=== PATIENT | female | born 1940 | race Caucasian/White ===

== ENCOUNTER 2023-02-15 05:25 | Inpatient (IN) | payer MEDICARE, MEDICAID ==
[2023-02-15] VITALS (57 sets, daily range): BP systolic 60–145; BP diastolic 16–85
[~2023-02-15] VITALS: Ht 152.4 cm; Wt 60.3 kg
[~2023-02-15 05:25] MED LIST: CALC-1042 PO; CHOL100046 PO; LEVO25TA7 PO; METF-416 PO; PRAM0.5T11 PO; RIVA20TA PO; SPIR25TA6 PO
[2023-02-15] MEDS ORDERED: SODIUM CHLORIDE 0.9% 1,000 ML IV SCH (06:15)
[2023-02-15 06:18] LABS: CHLORIDE 107 mEq/L (98-107)
[2023-02-15 06:19] LABS: INR 1.1; PARTIAL THROMBOPLASTIN TIME 25.4 sec (23.4-31.0); PROTHROMBIN TIME 11.5 sec (9.6-11.0)
[2023-02-15] MEDS ORDERED: GENTAMICIN SULF 40MG/ML 2ML VIAL ONE (06:20)
[2023-02-15] MEDS ORDERED: LIDOCAINE HCL 1%/EPI 1:200,000 30 ML VIAL ONE (06:20)
[2023-02-15] MEDS ORDERED: THROMBIN (BOVINE) 5000 UNITS/VIAL TOP ONE (06:20)
[2023-02-15] MEDS ORDERED: ACETAMINOPHEN 500MG TABLET ONE (06:21)
[2023-02-15] MEDS ORDERED: PROPOFOL 10MG/ML 100ML 100 ML IV ONE (06:38)
[2023-02-15] MEDS ORDERED: SEVOFLURANE 250 ML LIQUID INH ONE (06:40)
[2023-02-15] MEDS ORDERED: DEXMEDETOMIDINE 400 MCG/100 ML 100 ML IV ONE (06:40)
[2023-02-15] MEDS ORDERED: SUCCINYLCHOLINE CHLORIDE 200MG/10ML IV ONE (07:10)
[2023-02-15] MEDS ORDERED: FENTANYL CITRATE/PF 50MCG/ML 2ML VIAL ONE (07:10)
[2023-02-15] MEDS ORDERED: PHENYLEPHRINE HCL 10 MG/ML 1ML (IV VIAL) IV ONE (07:13)
[2023-02-15] MEDS ORDERED: DEXAMETHASONE 4MG/ML 1ML VIAL ONE (07:14)
[2023-02-15] MEDS ORDERED: LIDOCAINE HCL 1% 10 MG/ML 10ML VIAL ONE (07:14)
[2023-02-15] MEDS ORDERED: CEFAZOLIN SODIUM 1000MG/VIAL ONE (07:14)
[2023-02-15] MEDS ORDERED: VECURONIUM BROMIDE 10 MG/VIAL IV ONE (07:21)
[2023-02-15] MEDS ORDERED: HYDROMORPHONE HCL/PF 2MG/ML CPJ ONE (08:32)
[2023-02-15] MEDS ORDERED: HYDRALAZINE 20MG/ML VIAL ONE (08:46)
[2023-02-15] MEDS ORDERED: DEXTROSE 50% WATER 50ML SYRINGE IV ONE (09:03)
[2023-02-15] MEDS ORDERED: ALBUMIN HUMAN 12.5G/250ML (5%) IV ONE (09:03)
[2023-02-15] MEDS ORDERED: ONDANSETRON HCL 4MG/2ML INJ IV PRN (09:30)
[2023-02-15] MEDS ORDERED: FENTANYL CITRATE/PF 50MCG/ML 2ML VIAL IV PRN (09:30)
[2023-02-15] MEDS ORDERED: GLYCOPYRROLATE 0.2 MG/ML 2ML VIAL ONE (09:48)
[2023-02-15] MEDS ORDERED: NEOSTIGMINE METHYLSULFATE 1MG/ML 10 ML VIAL ONE (09:48)
[2023-02-15] MEDS ORDERED: NICARDIPINE 100 MG in SODIUM CHLORIDE 0.9% 60 ML IV PRN (10:15)
[2023-02-15] MEDS ORDERED: BACITRACIN 15GM TUBE TOP ONE (10:27)
[2023-02-15] MEDS ORDERED: NALOXONE HCL 0.4MG/ML VIAL IV PRN (10:30)
[2023-02-15] MEDS: DEXT 5%/LACTATED RINGERS 1,000 ML IV SCH ×2 (11:52→22:56)
[2023-02-15] MEDS: DEXAMETHASONE 4MG/ML 1ML VIAL IV SCH ×2 (11:52→17:41)
[2023-02-15] MEDS: MORPHINE SULFATE 4 MG/ML CPJ (NOT FOR IM USE) IV PRN ×2 (11:54→15:02)
[2023-02-15] MEDS ORDERED: ALBUMIN HUMAN 25GM/500ML (5%) IV PRN (12:45)
[2023-02-15] MEDS: HYDROMORPHONE HCL/PF 2MG/ML CPJ IV PRN ×2 (12:48→17:41)
[2023-02-15] MEDS ORDERED: CEFAZOLIN SODIUM 1000MG/VIAL IV SCH (14:00)
[2023-02-15] MEDS: CEFAZOLIN 1000MG PREMIX 50 ML IV SCH ×2 (14:59→22:56)
[2023-02-15] MEDS: LEVOTHYROXINE SODIUM 25MCG TABLET PO SCH (17:40)
[2023-02-16] VITALS (54 sets, daily range): BP systolic -15–157; BP diastolic -20–117
[2023-02-16] MEDS: DEXAMETHASONE 4MG/ML 1ML VIAL IV SCH ×3 (01:01→11:41)
[2023-02-16 05:47] LABS: CHLORIDE 106 mEq/L (98-107)
[2023-02-16] MEDS: LEVOTHYROXINE SODIUM 25MCG TABLET PO SCH (07:28)
[2023-02-16] MEDS: CEFAZOLIN 1000MG PREMIX 50 ML IV SCH (07:28)
[2023-02-16] MEDS ORDERED: DEXTROSE 50% WATER 50ML SYRINGE IV PRN (08:00)
[2023-02-16] MEDS: INSULIN LISPRO 100 UNITS/ML SUBCUT SCH ×4 (08:26→21:00)
[2023-02-16] MEDS: BLOOD SUGAR DIAGNOSTIC STRIP TEST SCH ×4 (08:27→21:00)
[2023-02-16] MEDS: SODIUM CHLORIDE 0.9% 1,000 ML IV SCH ×2 (08:27→19:15)
[2023-02-16 09:16] LABS: HEMATOCRIT. 31.8 % (36.0-48.0); HEMOGLOBIN. 10.4 g/dL (12.0-16.0); MEAN CORPUSCULAR HEMOGLOBIN 24.3 pg (28.0-32.0); MEAN CORPUSCULAR VOLUME 74.2 fL (81.0-99.0); PLATELET 192 x1000/uL (130-400); RED BLOOD CELL COUNT 4.28 mill/uL (4.2-5.4); RED CELL DISTRIBUTION WIDTH 15.4 % (11.6-14.6)
[2023-02-16 09:57] LABS: PLATELET ESTIMATE NORMAL
[2023-02-16] MEDS: MORPHINE SULFATE 4 MG/ML CPJ (NOT FOR IM USE) IV PRN ×2 (11:42→19:36)
[2023-02-16] MEDS ORDERED: HYDRALAZINE 20MG/ML VIAL IV PRN (13:45)
[2023-02-17] VITALS (17 sets, daily range): BP systolic 95–145; BP diastolic 51–97
[2023-02-17] MEDS: LEVOTHYROXINE SODIUM 25MCG TABLET PO SCH (06:01)
[2023-02-17] MEDS: BLOOD SUGAR DIAGNOSTIC STRIP TEST SCH ×4 (06:30→21:00)
[2023-02-17] MEDS: INSULIN LISPRO 100 UNITS/ML SUBCUT SCH ×4 (07:00→22:30)
[2023-02-17] MEDS: SODIUM CHLORIDE 0.9% 1,000 ML IV SCH (07:51)
[2023-02-17] MEDS: MORPHINE SULFATE 4 MG/ML CPJ (NOT FOR IM USE) IV PRN ×2 (08:20→14:54)
[2023-02-17] MEDS ORDERED: HYDRALAZINE 5 MG in SODIUM CHLORIDE 0.9% 49.5 ML IV PRN (11:15)
[2023-02-17] MEDS: HYDRALAZINE 5 MG in SODIUM CHLORIDE 0.9% 49.5 ML IV PRN ×2 (12:17→17:53)
[2023-02-17] MEDS: AMLODIPINE 2.5MG TABLET PO SCH (16:13)
[2023-02-17] MEDS ORDERED: HYDROCODONE/ACETAMINOPHEN 5/325MG TABLET PO PRN (16:45)
[2023-02-17] MEDS: HYDROCODONE/ACETAMINOPHEN 10/325MG TABLET PO PRN (17:20)
[2023-02-17] MEDS ORDERED: CLONIDINE 0.1MG TABLET PO PRN (19:15)
[2023-02-17] MEDS: METOPROLOL TARTRATE 25MG TABLET PO SCH (21:05)
[2023-02-18] VITALS: BP 95/68
[2023-02-18] MEDS: HYDROCODONE/ACETAMINOPHEN 10/325MG TABLET PO PRN ×3 (02:15→18:01)
[2023-02-18 04:00] VITALS: BP 117/65
[2023-02-18] MEDS: LEVOTHYROXINE SODIUM 25MCG TABLET PO SCH (06:30)
[2023-02-18] MEDS: BLOOD SUGAR DIAGNOSTIC STRIP TEST SCH ×3 (07:20→18:08)
[2023-02-18] MEDS: INSULIN LISPRO 100 UNITS/ML SUBCUT SCH ×3 (07:50→17:50)
[2023-02-18 08:00] VITALS: BP 126/68
[2023-02-18] MEDS ORDERED: PRAMIPEXOLE DI-HCL 0.25MG TABLET PO SCH (09:00)
[2023-02-18] MEDS ORDERED: POLYETHYLENE GLYCOL 3350 (17GM) 1 DOSE PACK PO SCH (09:00)
[2023-02-18] MEDS: METOPROLOL TARTRATE 25MG TABLET PO SCH (10:04)
[2023-02-18] MEDS: AMLODIPINE 2.5MG TABLET PO SCH (10:05)
[2023-02-18 12:00] VITALS: BP 124/75
[2023-02-18] MEDS: LACTULOSE 20G/30ML UDC PO SCH ×3 (13:38→18:02)
[2023-02-18 16:00] VITALS: BP 115/67
[2023-02-18 18:21] VITALS: BP 115/67
== END 2023-02-18 18:45 | DRG 471 ==
LOC: OR 05:25 → MICUSO 11:47 → 6EST 02-17 10:55
PROVIDERS: ADMIT Internal Medicine; ATTEND Internal Medicine
PROC: 0RG2071 Fusion of 2 or more Cervical Vertebral Joints with Autologous Tissue Substitute, Posterior Approach, Posterior Column, Open Approach (ICD-10-PCS; principal; 2023-02-15)
PROC: 00NW0ZZ Release Cervical Spinal Cord, Open Approach (ICD-10-PCS; 2023-02-15)
PROC: 4A11X4G Monitoring of Peripheral Nervous Electrical Activity, Intraoperative, External Approach (ICD-10-PCS; 2023-02-15)
DX: M48.02 Spinal stenosis, cervical region (principal); G82.50 Quadriplegia, unspecified; G95.29 Other cord compression; G95.9 Disease of spinal cord, unspecified; R29.6 Repeated falls; I10 Essential (primary) hypertension; E11.9 Type 2 diabetes mellitus without complications; G89.4 Chronic pain syndrome; R26.89 Other abnormalities of gait and mobility; M20.11 Hallux valgus (acquired), right foot; M20.12 Hallux valgus (acquired), left foot; D64.9 Anemia, unspecified; M75.00 Adhesive capsulitis of unspecified shoulder; Z82.49 Family history of ischemic heart disease and other diseases of the circulatory system; Z79.84 Long term (current) use of oral hypoglycemic drugs
CPT/HCPCS: 36415; 71045; 72040; 72141; 76000; 80048; 82962; 83036; 84443; 85025; 86850; 86900; 88304; 88311; 93923; 93970; 95925; 95926; 95928; 95929; 97110; 97116; 97162; 97166; 97530; J0330; J0360; J0690; J1100; J1170; J1580; J1815; J2270; J2370; J2704; J2710; J3010; J3490; J7030; J7121; L0172; P9041; Q9957; C1713

== ENCOUNTER 2023-02-18 18:55 | Inpatient (IN) | payer MEDICARE, MEDICAID ==
[~2023-02-18] VITALS: Ht 152.4 cm; Wt 60.3 kg
[2023-02-18 19:30] VITALS: BP 140/53; PULSE 92; RESP 18; TEMP 98
[2023-02-18] MEDS: INSULIN LISPRO 100 UNITS/ML SUBCUT SCH (21:00)
[2023-02-18] MEDS ORDERED: NALOXONE HCL 0.4 MG/ML 1ML VIAL IV PRN (21:30)
[2023-02-18] MEDS ORDERED: DEXTROSE 50% WATER 50ML SYRINGE IV PRN (21:30)
[2023-02-18] MEDS ORDERED: CLONIDINE 0.1MG TABLET PO PRN (21:30)
[2023-02-18] MEDS: METOPROLOL TARTRATE 25MG TABLET PO SCH (22:10)
[2023-02-18] MEDS ORDERED: MORPHINE SULFATE 4 MG/ML CPJ (NOT FOR IM USE) IV PRN (22:25)
[2023-02-18] MEDS ORDERED: HYDROCODONE/ACETAMINOPHEN 5/325MG TABLET PO PRN (22:26)
[2023-02-19] MEDS ORDERED: HYDROCODONE/ACETAMINOPHEN 10/325MG TABLET PO PRN
[2023-02-19] MEDS: HYDROCODONE/ACETAMINOPHEN 10/325MG TABLET PO PRN ×3 (00:20→12:33)
[2023-02-19] MEDS: LEVOTHYROXINE SODIUM 25MCG TABLET PO SCH (06:20)
[2023-02-19] MEDS: BLOOD SUGAR DIAGNOSTIC STRIP TEST SCH ×4 (06:25→20:51)
[2023-02-19] MEDS: INSULIN LISPRO 100 UNITS/ML SUBCUT SCH ×4 (06:26→21:58)
[2023-02-19 06:57] LABS: BASOPHILS % 0.4 % (0.0-2.0); EOSINOPHILS % 2.9 % (0.0-5.0); HEMATOCRIT. 31.6 % (36.0-48.0); HEMOGLOBIN. 10.4 g/dL (12.0-16.0); LYMPHOCYTES % 24.8 % (20.0-50.0); MEAN CORPUSCULAR HEMOGLOBIN 24.4 pg (28.0-32.0); MEAN CORPUSCULAR VOLUME 73.9 fL (81.0-99.0); MEAN PLATELET VOLUME 8.9 fl (7.4-10.4); MONOCYTES % 11.1 % (2.0-8.0); NEUTROPHILS % 60.8 % (40.0-76.0); PLATELET 143 x1000/uL (130-400); RED BLOOD CELL COUNT 4.28 mill/uL (4.2-5.4)
[2023-02-19 07:11] LABS: CHLORIDE 105 mEq/L (98-107)
[2023-02-19 08:00] VITALS: BP 137/76; PULSE 80; RESP 18; TEMP 96.4
[2023-02-19] MEDS: PRAMIPEXOLE DI-HCL 0.25MG TABLET PO SCH (09:09)
[2023-02-19] MEDS: POLYETHYLENE GLYCOL 3350 (17GM) 1 DOSE PACK PO SCH (09:09)
[2023-02-19] MEDS: METOPROLOL TARTRATE 25MG TABLET PO SCH ×2 (09:09→21:55)
[2023-02-19] MEDS: AMLODIPINE 2.5MG TABLET PO SCH (09:09)
[2023-02-19] MEDS ORDERED: IPRATROPIUM/ALBUTEROL 0.5-3(2.5)MG/3ML NEB HHN PRN (10:15)
[2023-02-19] MEDS: LACTULOSE 20G/30ML UDC PO SCH ×2 (12:09→17:40)
[2023-02-19 12:30] VITALS: BP 127/64
[2023-02-19 20:00] VITALS: BP 139/76; PULSE 76; RESP 20; TEMP 98
[2023-02-20 05:21] LABS: BASOPHILS % 0.2 % (0.0-2.0); EOSINOPHILS % 0.3 % (0.0-5.0); HEMATOCRIT. 35.1 % (36.0-48.0); HEMOGLOBIN. 11.4 g/dL (12.0-16.0); LYMPHOCYTES % 11.3 % (20.0-50.0); MEAN CORPUSCULAR HEMOGLOBIN 24.3 pg (28.0-32.0); MEAN CORPUSCULAR VOLUME 74.6 fL (81.0-99.0); MEAN PLATELET VOLUME 8.9 fl (7.4-10.4); MONOCYTES % 11.5 % (2.0-8.0); NEUTROPHILS % 76.7 % (40.0-76.0); PLATELET 187 x1000/uL (130-400)
[2023-02-20] MEDS: BLOOD SUGAR DIAGNOSTIC STRIP TEST SCH ×4 (05:21→21:00)
[2023-02-20] MEDS: HYDROCODONE/ACETAMINOPHEN 5/325MG TABLET PO PRN ×2 (05:22→14:06)
[2023-02-20] MEDS: LEVOTHYROXINE SODIUM 25MCG TABLET PO SCH (06:16)
[2023-02-20 06:35] LABS: CHLORIDE 100 mEq/L (98-107); TOTAL IRON BINDING CAPACITY 431 ug/dL (250-450)
[2023-02-20] MEDS: INSULIN LISPRO 100 UNITS/ML SUBCUT SCH ×4 (06:53→22:30)
[2023-02-20] MEDS ORDERED: IRON SUCROSE COMPLEX 100 MG/5 ML ML IV SCH (07:15)
[2023-02-20 07:58] VITALS: BP 134/82; PULSE 101; RESP 18; TEMP 98.1
[2023-02-20 08:13] LABS: VITAMIN B12 SERUM >2000 pg/mL pg/mL (211-911)
[2023-02-20] MEDS ORDERED: TRAMADOL 50MG TABLET PO PRN (08:45)
[2023-02-20] MEDS: AMLODIPINE 2.5MG TABLET PO SCH (08:46)
[2023-02-20] MEDS: METOPROLOL TARTRATE 25MG TABLET PO SCH ×2 (08:47→22:23)
[2023-02-20] MEDS: PRAMIPEXOLE DI-HCL 0.25MG TABLET PO SCH (08:47)
[2023-02-20] MEDS: POLYETHYLENE GLYCOL 3350 (17GM) 1 DOSE PACK PO SCH (09:08)
[2023-02-20] MEDS: HYDROCODONE/ACETAMINOPHEN 10/325MG TABLET PO PRN (09:09)
[2023-02-20 10:01] LABS: FERRITIN 33 ng/mL (10-291)
[2023-02-20] MEDS: POVIDONE-IODINE 10% TOPICAL SOLN 240ML TOP SCH (13:00)
[2023-02-20 18:22] LABS: CLARITY URINE CLEAR (CLEAR); COLOR URINE DARK YELLOW (YELLOW); KETONES URINE 1+ (NEGATIVE); LEUKOCYTE ESTERASE URINE 2+ (NEGATIVE); NITRITE URINE NEGATIVE (NEGATIVE); OCCULT BLOOD URINE NEGATIVE (NEGATIVE); PROTEIN URINE 1+ (NEGATIVE); SPECIFIC GRAVITY URINE 1.023 (1.005-1.030)
[2023-02-20 18:29] LABS: SODIUM URINE RANDOM 50 mEq/L
[2023-02-20 20:05] VITALS: BP 138/66; PULSE 85; RESP 17; TEMP 97.3
[2023-02-20] MEDS: IRON SUCROSE COMPLEX 200 MG in SODIUM CHLORIDE 0.9% 100 ML IV SCH (21:22)
[2023-02-21] MEDS: LEVOTHYROXINE SODIUM 25MCG TABLET PO SCH (06:17)
[2023-02-21] MEDS: BLOOD SUGAR DIAGNOSTIC STRIP TEST SCH ×4 (06:17→21:00)
[2023-02-21] MEDS: HYDROCODONE/ACETAMINOPHEN 5/325MG TABLET PO PRN (06:18)
[2023-02-21] MEDS: INSULIN LISPRO 100 UNITS/ML SUBCUT SCH ×4 (07:52→21:00)
[2023-02-21 08:00] VITALS: BP 139/58; PULSE 94; RESP 17; TEMP 98
[2023-02-21 08:05] LABS: CHLORIDE 99 mEq/L (98-107); PHOSPHORUS 1.8 mg/dL (2.5-4.9)
[2023-02-21] MEDS: IRON SUCROSE COMPLEX 200 MG in SODIUM CHLORIDE 0.9% 100 ML IV SCH (09:17)
[2023-02-21] MEDS: PRAMIPEXOLE DI-HCL 0.25MG TABLET PO SCH (09:18)
[2023-02-21] MEDS: LACTULOSE 20G/30ML UDC PO SCH ×3 (09:18→16:02)
[2023-02-21] MEDS: METOPROLOL TARTRATE 25MG TABLET PO SCH ×2 (09:19→22:07)
[2023-02-21] MEDS: POLYETHYLENE GLYCOL 3350 (17GM) 1 DOSE PACK PO SCH (09:20)
[2023-02-21] MEDS: POVIDONE-IODINE 10% TOPICAL SOLN 240ML TOP SCH (09:20)
[2023-02-21] MEDS: AMLODIPINE 2.5MG TABLET PO SCH (09:20)
[2023-02-21] MEDS: HYDROCODONE/ACETAMINOPHEN 10/325MG TABLET PO PRN (11:30)
[2023-02-21] MEDS ORDERED: NA PHOS,M-B/NA PHOS,DI-BA ENEMA 118ML PR NR (14:00)
[2023-02-21] MEDS: PANTOPRAZOLE SODIUM 40 MG/VIAL IV SCH (16:02)
[2023-02-21] MEDS: METOCLOPRAMIDE HCL 10MG/2ML VIAL IV SCH (17:55)
[2023-02-21] MEDS: PIPERACILLIN/TAZOBACTAM 3.375 G in DEXTROSE 5% WATER 50 ML IV SCH ×2 (17:55→22:06)
[2023-02-21 20:00] VITALS: BP 114/42; PULSE 59; RESP 22; TEMP 97.2
[2023-02-22] MEDS: METOCLOPRAMIDE HCL 10MG/2ML VIAL IV SCH ×5 (04:09→23:05)
[2023-02-22] MEDS: LEVOTHYROXINE SODIUM 25MCG TABLET PO SCH (05:08)
[2023-02-22] MEDS: PIPERACILLIN/TAZOBACTAM 3.375 G in DEXTROSE 5% WATER 50 ML IV SCH ×3 (05:08→23:08)
[2023-02-22] MEDS: HYDROCODONE/ACETAMINOPHEN 5/325MG TABLET PO PRN (05:11)
[2023-02-22 06:13] LABS: BASOPHILS % 0.2 % (0.0-2.0); EOSINOPHILS % 0.9 % (0.0-5.0); HEMATOCRIT. 30.5 % (36.0-48.0); HEMOGLOBIN. 9.9 g/dL (12.0-16.0); LYMPHOCYTES % 15.1 % (20.0-50.0); MEAN CORPUSCULAR VOLUME 73.7 fL (81.0-99.0); MEAN PLATELET VOLUME 8.4 fl (7.4-10.4); MONOCYTES % 12.2 % (2.0-8.0); NEUTROPHILS % 71.6 % (40.0-76.0); PLATELET 223 x1000/uL (130-400); RED BLOOD CELL COUNT 4.13 mill/uL (4.2-5.4)
[2023-02-22] MEDS: BLOOD SUGAR DIAGNOSTIC STRIP TEST SCH ×4 (06:36→21:00)
[2023-02-22] MEDS: INSULIN LISPRO 100 UNITS/ML SUBCUT SCH ×4 (06:36→22:00)
[2023-02-22 06:53] LABS: CHLORIDE 102 mEq/L (98-107)
[2023-02-22 08:00] VITALS: BP 125/65; RESP 18; TEMP 98.6
[2023-02-22] MEDS ORDERED: LACTULOSE 20G/30ML UDC PO PRN (08:30)
[2023-02-22] MEDS: PANTOPRAZOLE SODIUM 40 MG/VIAL IV SCH (09:12)
[2023-02-22] MEDS: POLYETHYLENE GLYCOL 3350 (17GM) 1 DOSE PACK PO SCH (09:12)
[2023-02-22] MEDS: METOPROLOL TARTRATE 25MG TABLET PO SCH ×2 (09:16→21:23)
[2023-02-22] MEDS: PRAMIPEXOLE DI-HCL 0.25MG TABLET PO SCH (09:16)
[2023-02-22] MEDS: AMLODIPINE 2.5MG TABLET PO SCH (09:16)
[2023-02-22] MEDS: IRON SUCROSE COMPLEX 200 MG in SODIUM CHLORIDE 0.9% 100 ML IV SCH (09:17)
[2023-02-22] MEDS: POVIDONE-IODINE 10% TOPICAL SOLN 240ML TOP SCH (10:00)
[2023-02-22] MEDS: HYDROCODONE/ACETAMINOPHEN 10/325MG TABLET PO PRN ×2 (12:15→21:25)
[2023-02-22 20:00] VITALS: BP 123/67; PULSE 105; RESP 18; TEMP 97.3
[2023-02-23] MEDS: HYDROCODONE/ACETAMINOPHEN 10/325MG TABLET PO PRN (04:21)
[2023-02-23] MEDS: METOCLOPRAMIDE HCL 10MG/2ML VIAL IV SCH ×3 (06:27→18:00)
[2023-02-23] MEDS: PIPERACILLIN/TAZOBACTAM 3.375 G in DEXTROSE 5% WATER 50 ML IV SCH ×3 (06:27→22:07)
[2023-02-23] MEDS: BLOOD SUGAR DIAGNOSTIC STRIP TEST SCH ×4 (06:28→21:04)
[2023-02-23] MEDS: LEVOTHYROXINE SODIUM 25MCG TABLET PO SCH (06:28)
[2023-02-23 08:00] VITALS: BP 104/62; PULSE 80; RESP 17; TEMP 97
[2023-02-23] MEDS: PANTOPRAZOLE SODIUM 40 MG/VIAL IV SCH (08:57)
[2023-02-23] MEDS: POVIDONE-IODINE 10% TOPICAL SOLN 240ML TOP SCH (09:00)
[2023-02-23] MEDS: METOPROLOL TARTRATE 25MG TABLET PO SCH ×2 (09:00→21:01)
[2023-02-23] MEDS: INSULIN LISPRO 100 UNITS/ML SUBCUT SCH ×4 (09:00→22:15)
[2023-02-23] MEDS: AMLODIPINE 2.5MG TABLET PO SCH (09:00)
[2023-02-23] MEDS: POLYETHYLENE GLYCOL 3350 (17GM) 1 DOSE PACK PO SCH (10:23)
[2023-02-23] MEDS: PRAMIPEXOLE DI-HCL 0.25MG TABLET PO SCH (10:24)
[2023-02-23] MEDS: HYDROCODONE/ACETAMINOPHEN 5/325MG TABLET PO PRN ×2 (10:31→20:00)
[2023-02-23 20:00] VITALS: BP 140/83; PULSE 84; RESP 18; TEMP 97.3
[2023-02-24] MEDS: METOCLOPRAMIDE HCL 10MG/2ML VIAL IV SCH ×5 (01:31→23:37)
[2023-02-24] MEDS: PIPERACILLIN/TAZOBACTAM 3.375 G in DEXTROSE 5% WATER 50 ML IV SCH (06:09)
[2023-02-24] MEDS: BLOOD SUGAR DIAGNOSTIC STRIP TEST SCH ×4 (06:09→21:33)
[2023-02-24] MEDS: INSULIN LISPRO 100 UNITS/ML SUBCUT SCH ×4 (06:18→21:41)
[2023-02-24] MEDS: LEVOTHYROXINE SODIUM 25MCG TABLET PO SCH (06:18)
[2023-02-24] MEDS: HYDROCODONE/ACETAMINOPHEN 5/325MG TABLET PO PRN ×3 (07:17→19:42)
[2023-02-24 08:00] VITALS: BP 131/74; PULSE 69; RESP 18; TEMP 98.2
[2023-02-24] MEDS: PRAMIPEXOLE DI-HCL 0.25MG TABLET PO SCH (09:40)
[2023-02-24] MEDS: AMLODIPINE 2.5MG TABLET PO SCH (09:40)
[2023-02-24] MEDS: METOPROLOL TARTRATE 25MG TABLET PO SCH ×2 (09:40→21:35)
[2023-02-24] MEDS: POVIDONE-IODINE 10% TOPICAL SOLN 240ML TOP SCH (09:42)
[2023-02-24] MEDS: POLYETHYLENE GLYCOL 3350 (17GM) 1 DOSE PACK PO SCH (09:42)
[2023-02-24] MEDS ORDERED: NALOXONE HCL 0.4MG/ML VIAL IV PRN (09:45)
[2023-02-24] MEDS: PANTOPRAZOLE SODIUM 40 MG/VIAL IV SCH (10:18)
[2023-02-24] MEDS ORDERED: LACTULOSE 20G/30ML UDC PO NR (12:00)
[2023-02-24 20:03] VITALS: BP 128/59; PULSE 76; RESP 20; TEMP 98.1
[2023-02-24] MEDS: SENNOSIDES/DOCUSATE SOD 8.6/50MG TABLET PO SCH (21:23)
[2023-02-24] MEDS: ZOLPIDEM TARTRATE 5MG TABLET PO PRN (22:22)
[2023-02-25 05:46] LABS: CHLORIDE 103 mEq/L (98-107)
[2023-02-25] MEDS: LEVOTHYROXINE SODIUM 25MCG TABLET PO SCH (06:21)
[2023-02-25] MEDS: INSULIN LISPRO 100 UNITS/ML SUBCUT SCH ×4 (06:21→21:30)
[2023-02-25] MEDS: METOCLOPRAMIDE HCL 10MG/2ML VIAL IV SCH ×3 (06:21→17:34)
[2023-02-25] MEDS: BLOOD SUGAR DIAGNOSTIC STRIP TEST SCH ×4 (06:21→21:00)
[2023-02-25 06:32] LABS: BASOPHILS % 0.6 % (0.0-2.0); EOSINOPHILS % 2.5 % (0.0-5.0); HEMATOCRIT. 32.3 % (36.0-48.0); HEMOGLOBIN. 10.3 g/dL (12.0-16.0); LYMPHOCYTES % 22.4 % (20.0-50.0); MEAN CORPUSCULAR HEMOGLOBIN 24.2 pg (28.0-32.0); MEAN CORPUSCULAR VOLUME 75.7 fL (81.0-99.0); MONOCYTES % 11.2 % (2.0-8.0); NEUTROPHILS % 63.3 % (40.0-76.0); PLATELET 250 x1000/uL (130-400); RED BLOOD CELL COUNT 4.27 mill/uL (4.2-5.4); RED CELL DISTRIBUTION WIDTH 16.4 % (11.6-14.6)
[2023-02-25 08:00] VITALS: BP 147/71; PULSE 94; RESP 17; TEMP 97.8
[2023-02-25] MEDS: PRAMIPEXOLE DI-HCL 0.25MG TABLET PO SCH (09:37)
[2023-02-25] MEDS: AMLODIPINE 2.5MG TABLET PO SCH (09:38)
[2023-02-25] MEDS: METOPROLOL TARTRATE 25MG TABLET PO SCH ×2 (09:38→21:00)
[2023-02-25] MEDS: POLYETHYLENE GLYCOL 3350 (17GM) 1 DOSE PACK PO SCH (09:38)
[2023-02-25] MEDS: PANTOPRAZOLE SODIUM 40 MG/VIAL IV SCH (09:39)
[2023-02-25] MEDS: HYDROCODONE/ACETAMINOPHEN 5/325MG TABLET PO PRN (09:51)
[2023-02-25] MEDS: POVIDONE-IODINE 10% TOPICAL SOLN 240ML TOP SCH (09:52)
[2023-02-25] MEDS: HYDROCODONE/ACETAMINOPHEN 10/325MG TABLET PO PRN ×2 (14:35→20:40)
[2023-02-25 20:00] VITALS: BP 129/74; PULSE 77; RESP 18; TEMP 97.6
[2023-02-25] MEDS: SENNOSIDES/DOCUSATE SOD 8.6/50MG TABLET PO SCH (21:00)
[2023-02-25] MEDS: ZOLPIDEM TARTRATE 5MG TABLET PO PRN (22:30)
[2023-02-26] MEDS: HYDROCODONE/ACETAMINOPHEN 5/325MG TABLET PO PRN ×2 (03:52→11:06)
[2023-02-26] MEDS: METOCLOPRAMIDE HCL 10MG/2ML VIAL IV SCH ×5 (06:00→22:30)
[2023-02-26] MEDS: BLOOD SUGAR DIAGNOSTIC STRIP TEST SCH ×4 (06:30→21:29)
[2023-02-26] MEDS: LEVOTHYROXINE SODIUM 25MCG TABLET PO SCH (06:47)
[2023-02-26 08:18] VITALS: BP 90/72; PULSE 61; RESP 18; TEMP 98.3
[2023-02-26] MEDS: POVIDONE-IODINE 10% TOPICAL SOLN 240ML TOP SCH (09:00)
[2023-02-26] MEDS: PANTOPRAZOLE SODIUM 40 MG/VIAL IV SCH (09:14)
[2023-02-26] MEDS: INSULIN LISPRO 100 UNITS/ML SUBCUT SCH ×4 (10:55→21:39)
[2023-02-26] MEDS: METOPROLOL TARTRATE 25MG TABLET PO SCH ×2 (10:56→21:28)
[2023-02-26] MEDS: AMLODIPINE 2.5MG TABLET PO SCH (10:56)
[2023-02-26] MEDS: POLYETHYLENE GLYCOL 3350 (17GM) 1 DOSE PACK PO SCH (10:56)
[2023-02-26] MEDS: PRAMIPEXOLE DI-HCL 0.25MG TABLET PO SCH (10:56)
[2023-02-26 20:00] VITALS: BP 150/64; PULSE 85; RESP 19; TEMP 97.5
[2023-02-26] MEDS: SENNOSIDES/DOCUSATE SOD 8.6/50MG TABLET PO SCH (21:00)
[2023-02-26] MEDS: ZOLPIDEM TARTRATE 5MG TABLET PO PRN (21:27)
[2023-02-27] MEDS: HYDROCODONE/ACETAMINOPHEN 5/325MG TABLET PO PRN ×3 (03:11→22:16)
[2023-02-27] MEDS: METOCLOPRAMIDE HCL 10MG/2ML VIAL IV SCH ×3 (06:09→17:18)
[2023-02-27] MEDS: LEVOTHYROXINE SODIUM 25MCG TABLET PO SCH (06:10)
[2023-02-27] MEDS: BLOOD SUGAR DIAGNOSTIC STRIP TEST SCH ×4 (06:11→21:46)
[2023-02-27] MEDS: INSULIN LISPRO 100 UNITS/ML SUBCUT SCH ×4 (06:11→21:00)
[2023-02-27 08:00] VITALS: BP 139/59; PULSE 61; RESP 19; TEMP 97.7
[2023-02-27] MEDS: POVIDONE-IODINE 10% TOPICAL SOLN 240ML TOP SCH (09:00)
[2023-02-27] MEDS: PANTOPRAZOLE SODIUM 40 MG/VIAL IV SCH (09:10)
[2023-02-27] MEDS: PRAMIPEXOLE DI-HCL 0.25MG TABLET PO SCH (09:10)
[2023-02-27] MEDS: METOPROLOL TARTRATE 25MG TABLET PO SCH ×2 (09:11→21:00)
[2023-02-27] MEDS: POLYETHYLENE GLYCOL 3350 (17GM) 1 DOSE PACK PO SCH (09:12)
[2023-02-27] MEDS: AMLODIPINE 2.5MG TABLET PO SCH (09:12)
[2023-02-27 10:24] LABS: BASOPHILS % 0.7 % (0.0-2.0); EOSINOPHILS % 2.2 % (0.0-5.0); HEMOGLOBIN. 10.4 g/dL (12.0-16.0); LYMPHOCYTES % 20.4 % (20.0-50.0); MEAN CORPUSCULAR HEMOGLOBIN 24.6 pg (28.0-32.0); MEAN CORPUSCULAR VOLUME 75.5 fL (81.0-99.0); MEAN PLATELET VOLUME 8.2 fl (7.4-10.4); MONOCYTES % 9.1 % (2.0-8.0); NEUTROPHILS % 67.6 % (40.0-76.0); PLATELET 267 x1000/uL (130-400); RED BLOOD CELL COUNT 4.24 mill/uL (4.2-5.4); RED CELL DISTRIBUTION WIDTH 16.8 % (11.6-14.6)
[2023-02-27 10:31] LABS: CHLORIDE 105 mEq/L (98-107)
[2023-02-27] MEDS: HYDROCODONE/ACETAMINOPHEN 10/325MG TABLET PO PRN (14:05)
[2023-02-27 19:51] VITALS: BP 107/65; PULSE 78; RESP 16; TEMP 97.1
[2023-02-27] MEDS: SENNOSIDES/DOCUSATE SOD 8.6/50MG TABLET PO SCH (22:15)
[2023-02-28] MEDS: METOCLOPRAMIDE HCL 10MG/2ML VIAL IV SCH ×4 (00:25→18:23)
[2023-02-28] MEDS: LEVOTHYROXINE SODIUM 25MCG TABLET PO SCH (06:36)
[2023-02-28] MEDS: HYDROCODONE/ACETAMINOPHEN 5/325MG TABLET PO PRN (06:38)
[2023-02-28] MEDS: BLOOD SUGAR DIAGNOSTIC STRIP TEST SCH ×4 (06:46→21:00)
[2023-02-28 08:00] VITALS: BP 100/55; PULSE 80; RESP 17; TEMP 97.3
[2023-02-28] MEDS: INSULIN LISPRO 100 UNITS/ML SUBCUT SCH ×4 (08:22→21:00)
[2023-02-28] MEDS: AMLODIPINE 2.5MG TABLET PO SCH (09:00)
[2023-02-28] MEDS: POVIDONE-IODINE 10% TOPICAL SOLN 240ML TOP SCH (09:00)
[2023-02-28] MEDS: PANTOPRAZOLE SODIUM 40 MG/VIAL IV SCH (09:16)
[2023-02-28] MEDS: POLYETHYLENE GLYCOL 3350 (17GM) 1 DOSE PACK PO SCH (09:16)
[2023-02-28] MEDS: METOPROLOL TARTRATE 25MG TABLET PO SCH ×2 (09:16→22:54)
[2023-02-28] MEDS: PRAMIPEXOLE DI-HCL 0.25MG TABLET PO SCH (09:17)
[2023-02-28] MEDS ORDERED: TRAMADOL 50MG TABLET PO PRN (12:15)
[2023-02-28] MEDS ORDERED: ACETAMINOPHEN 325MG TABLET PO PRN (12:15)
[2023-02-28] MEDS: DOCUSATE SODIUM 250MG CAPSULE PO SCH ×2 (12:46→17:00)
[2023-02-28] MEDS: DICLOFENAC SODIUM 1% GEL 50GM TOP SCH ×2 (17:00→22:53)
[2023-02-28] MEDS: HYDROCODONE/ACETAMINOPHEN 7.5/325MG TABLET PO PRN (19:05)
[2023-02-28 20:00] VITALS: BP 136/42; PULSE 81; RESP 20; TEMP 97
[2023-02-28] MEDS ORDERED: MELATONIN 3MG TABLET PO PRN (21:00)
[2023-02-28] MEDS: GABAPENTIN 100MG CAPSULE PO SCH (22:53)
[2023-03-01] MEDS: METOCLOPRAMIDE HCL 10MG/2ML VIAL IV SCH ×4 (06:00→18:00)
[2023-03-01] MEDS: BLOOD SUGAR DIAGNOSTIC STRIP TEST SCH ×4 (06:59→21:00)
[2023-03-01] MEDS: LEVOTHYROXINE SODIUM 25MCG TABLET PO SCH (07:00)
[2023-03-01 08:00] VITALS: BP 136/75; PULSE 90; RESP 18; TEMP 97.5
[2023-03-01] MEDS: INSULIN LISPRO 100 UNITS/ML SUBCUT SCH ×4 (08:25→21:37)
[2023-03-01] MEDS: PANTOPRAZOLE SODIUM 40 MG/VIAL IV SCH (09:00)
[2023-03-01] MEDS: DICLOFENAC SODIUM 1% GEL 50GM TOP SCH ×4 (09:00→21:00)
[2023-03-01] MEDS: POVIDONE-IODINE 10% TOPICAL SOLN 240ML TOP SCH (09:00)
[2023-03-01] MEDS: DOCUSATE SODIUM 250MG CAPSULE PO SCH ×2 (09:34→17:00)
[2023-03-01] MEDS: PRAMIPEXOLE DI-HCL 0.25MG TABLET PO SCH (09:35)
[2023-03-01] MEDS: POLYETHYLENE GLYCOL 3350 (17GM) 1 DOSE PACK PO SCH (09:36)
[2023-03-01] MEDS: LIDOCAINE 5% PATCH TOP SCH (09:36)
[2023-03-01] MEDS: AMLODIPINE 2.5MG TABLET PO SCH (09:38)
[2023-03-01] MEDS: METOPROLOL TARTRATE 25MG TABLET PO SCH ×2 (09:39→21:33)
[2023-03-01] MEDS: HYDROCODONE/ACETAMINOPHEN 7.5/325MG TABLET PO PRN ×2 (12:27→21:35)
[2023-03-01] MEDS ORDERED: TRIAMCINOLONE ACETONIDE 40MG/ML 1ML VIAL IM SCH (14:00)
[2023-03-01] MEDS ORDERED: LIDOCAINE HCL 1% 20ML VIAL (Pyxis) INJ INFIL SCH (14:00)
[2023-03-01 20:00] VITALS: BP 141/81; PULSE 83; RESP 18; TEMP 97
[2023-03-01] MEDS: GABAPENTIN 100MG CAPSULE PO SCH (21:31)
[2023-03-02] MEDS: ZOLPIDEM TARTRATE 5MG TABLET PO PRN (02:11)
[2023-03-02] MEDS: METOCLOPRAMIDE HCL 10MG/2ML VIAL IV SCH ×5 (06:00→23:59)
[2023-03-02 06:02] LABS: BASOPHILS % 1.1 % (0.0-2.0); HEMATOCRIT. 32.8 % (36.0-48.0); HEMOGLOBIN. 10.5 g/dL (12.0-16.0); LYMPHOCYTES % 37.1 % (20.0-50.0); MEAN CORPUSCULAR HEMOGLOBIN 24.3 pg (28.0-32.0); MEAN CORPUSCULAR VOLUME 75.6 fL (81.0-99.0); MEAN PLATELET VOLUME 8.3 fl (7.4-10.4); MONOCYTES % 13.4 % (2.0-8.0); NEUTROPHILS % 44.4 % (40.0-76.0); PLATELET 265 x1000/uL (130-400); RED BLOOD CELL COUNT 4.34 mill/uL (4.2-5.4); RED CELL DISTRIBUTION WIDTH 18.2 % (11.6-14.6)
[2023-03-02] MEDS: LEVOTHYROXINE SODIUM 25MCG TABLET PO SCH (06:15)
[2023-03-02 06:33] LABS: CHLORIDE 103 mEq/L (98-107)
[2023-03-02] MEDS: BLOOD SUGAR DIAGNOSTIC STRIP TEST SCH ×4 (07:13→21:29)
[2023-03-02 08:00] VITALS: BP 122/55; PULSE 87; RESP 18; TEMP 97.6
[2023-03-02] MEDS: HYDROCODONE/ACETAMINOPHEN 7.5/325MG TABLET PO PRN ×3 (08:49→21:21)
[2023-03-02] MEDS: INSULIN LISPRO 100 UNITS/ML SUBCUT SCH ×4 (09:00→21:35)
[2023-03-02] MEDS: DOCUSATE SODIUM 250MG CAPSULE PO SCH ×3 (09:00→17:00)
[2023-03-02] MEDS: PANTOPRAZOLE SODIUM 40 MG/VIAL IV SCH ×2 (09:00→09:04)
[2023-03-02] MEDS: POLYETHYLENE GLYCOL 3350 (17GM) 1 DOSE PACK PO SCH ×2 (09:00→09:11)
[2023-03-02] MEDS: PRAMIPEXOLE DI-HCL 0.25MG TABLET PO SCH (09:04)
[2023-03-02] MEDS: AMLODIPINE 2.5MG TABLET PO SCH (09:11)
[2023-03-02] MEDS: METOPROLOL TARTRATE 25MG TABLET PO SCH ×2 (09:11→21:20)
[2023-03-02] MEDS: DICLOFENAC SODIUM 1% GEL 50GM TOP SCH ×4 (09:13→21:30)
[2023-03-02] MEDS: LIDOCAINE 5% PATCH TOP SCH (09:13)
[2023-03-02] MEDS: POVIDONE-IODINE 10% TOPICAL SOLN 240ML TOP SCH (09:13)
[2023-03-02 20:00] VITALS: BP 147/62; PULSE 64; RESP 18; TEMP 97.9
[2023-03-02] MEDS ORDERED: MEDICATION NOT ON FORMULARY EA (MELATONIN 3 MG) PO SCH (21:00)
[2023-03-02] MEDS: MELATONIN 3MG TABLET PO SCH (21:19)
[2023-03-02] MEDS: GABAPENTIN 100MG CAPSULE PO SCH (21:19)
[2023-03-03] MEDS: METOCLOPRAMIDE HCL 10MG/2ML VIAL IV SCH ×2 (06:00→12:00)
[2023-03-03] MEDS: INSULIN LISPRO 100 UNITS/ML SUBCUT SCH ×4 (06:21→21:38)
[2023-03-03] MEDS: BLOOD SUGAR DIAGNOSTIC STRIP TEST SCH ×4 (06:21→21:19)
[2023-03-03] MEDS: LEVOTHYROXINE SODIUM 25MCG TABLET PO SCH (06:28)
[2023-03-03 08:00] VITALS: BP 138/74; PULSE 68; RESP 18; TEMP 96.8
[2023-03-03] MEDS: PANTOPRAZOLE SODIUM 40 MG/VIAL IV SCH (09:00)
[2023-03-03] MEDS: METOPROLOL TARTRATE 25MG TABLET PO SCH ×2 (09:31→21:18)
[2023-03-03] MEDS: PRAMIPEXOLE DI-HCL 0.25MG TABLET PO SCH (09:31)
[2023-03-03] MEDS: HYDROCODONE/ACETAMINOPHEN 7.5/325MG TABLET PO PRN ×2 (09:31→17:45)
[2023-03-03] MEDS: LIDOCAINE 5% PATCH TOP SCH (09:32)
[2023-03-03] MEDS: AMLODIPINE 2.5MG TABLET PO SCH (09:32)
[2023-03-03] MEDS: DOCUSATE SODIUM 250MG CAPSULE PO SCH ×2 (09:35→17:00)
[2023-03-03] MEDS: POLYETHYLENE GLYCOL 3350 (17GM) 1 DOSE PACK PO SCH (09:35)
[2023-03-03] MEDS: DICLOFENAC SODIUM 1% GEL 50GM TOP SCH ×4 (09:41→21:51)
[2023-03-03] MEDS: POVIDONE-IODINE 10% TOPICAL SOLN 240ML TOP SCH (10:00)
[2023-03-03] MEDS ORDERED: LIDOCAINE HCL 1% 20ML VIAL (Pyxis) INJ ONE (11:35)
[2023-03-03] MEDS ORDERED: ETHYL CHLORIDE CAN TOP NR (14:00)
[2023-03-03] MEDS ORDERED: PANTOPRAZOLE 40MG DR TABLET PO NR (14:45)
[2023-03-03] MEDS: METOCLOPRAMIDE HCL 10MG TABLET PO SCH ×2 (17:49→23:38)
[2023-03-03 20:00] VITALS: BP 121/60; PULSE 90; RESP 18; TEMP 97
[2023-03-03] MEDS: GABAPENTIN 100MG CAPSULE PO SCH (21:17)
[2023-03-03] MEDS: MELATONIN 3MG TABLET PO SCH (21:18)
[2023-03-04] MEDS: BLOOD SUGAR DIAGNOSTIC STRIP TEST SCH ×2 (05:42→11:38)
[2023-03-04] MEDS: LEVOTHYROXINE SODIUM 25MCG TABLET PO SCH (06:37)
[2023-03-04] MEDS: METOCLOPRAMIDE HCL 10MG TABLET PO SCH (06:38)
[2023-03-04] MEDS: INSULIN LISPRO 100 UNITS/ML SUBCUT SCH (06:42)
[2023-03-04] MEDS ORDERED: PANTOPRAZOLE 40MG DR TABLET PO SCH (07:00)
[2023-03-04] MEDS: LIDOCAINE 5% PATCH TOP SCH (08:54)
[2023-03-04] MEDS: AMLODIPINE 2.5MG TABLET PO SCH (08:56)
[2023-03-04] MEDS: DOCUSATE SODIUM 250MG CAPSULE PO SCH (08:56)
[2023-03-04] MEDS: PRAMIPEXOLE DI-HCL 0.25MG TABLET PO SCH (08:57)
[2023-03-04] MEDS: METOPROLOL TARTRATE 25MG TABLET PO SCH (08:57)
[2023-03-04] MEDS: DICLOFENAC SODIUM 1% GEL 50GM TOP SCH (08:58)
[2023-03-04] MEDS: POLYETHYLENE GLYCOL 3350 (17GM) 1 DOSE PACK PO SCH (08:58)
[2023-03-04] MEDS: POVIDONE-IODINE 10% TOPICAL SOLN 240ML TOP SCH (08:58)
[2023-03-04 09:07] VITALS: RESP 20
[2023-03-04] MEDS: HYDROCODONE/ACETAMINOPHEN 7.5/325MG TABLET PO PRN (09:07)
[2023-03-04] MEDS ORDERED: LEVO25TA7 PO (10:40)
[2023-03-04] MEDS ORDERED: MELA3TAB40 PO (10:40)
[2023-03-04] MEDS ORDERED: METO25TA6 PO (10:40)
[2023-03-04 10:53] VITALS: BP 121/65; PULSE 68; TEMP 97; O2SAT 98
[2023-03-04] MEDS ORDERED: METOCLOPRAMIDE HCL 5MG TABLET PO SCH (12:00)
== END 2023-03-04 12:00 | disposition home health service (06) | DRG 551 ==
PROVIDERS: ADMIT Physical Medicine & Rehabilitation Spinal Cord Injury Medicine; ATTEND Internal Medicine
DX: M48.02 Spinal stenosis, cervical region (principal); E43 Unspecified severe protein-calorie malnutrition; G82.50 Quadriplegia, unspecified; E87.1 Hypo-osmolality and hyponatremia; G99.2 Myelopathy in diseases classified elsewhere; E03.9 Hypothyroidism, unspecified; D50.9 Iron deficiency anemia, unspecified; E11.51 Type 2 diabetes mellitus with diabetic peripheral angiopathy without gangrene; I11.9 Hypertensive heart disease without heart failure; K56.41 Fecal impaction; E55.9 Vitamin D deficiency, unspecified; G89.4 Chronic pain syndrome; M20.12 Hallux valgus (acquired), left foot; M20.11 Hallux valgus (acquired), right foot; M17.11 Unilateral primary osteoarthritis, right knee; K76.0 Fatty (change of) liver, not elsewhere classified; M50.10 Cervical disc disorder with radiculopathy, unspecified cervical region; M75.02 Adhesive capsulitis of left shoulder; M75.01 Adhesive capsulitis of right shoulder; R53.81 Other malaise; R60.9 Edema, unspecified; M79.605 Pain in left leg; R00.0 Tachycardia, unspecified; R29.6 Repeated falls; Z79.899 Other long term (current) drug therapy; Z87.11 Personal history of peptic ulcer disease; Z82.49 Family history of ischemic heart disease and other diseases of the circulatory system; Z79.84 Long term (current) use of oral hypoglycemic drugs; Z79.01 Long term (current) use of anticoagulants; Z91.81 History of falling; Z68.26 Body mass index [BMI] 26.0-26.9, adult; R26.9 Unspecified abnormalities of gait and mobility
CPT/HCPCS: 36415; 73560; 74018; 74181; 76700; 80048; 80053; 80076; 81003; 82248; 82306; 82533; 82607; 82728; 82746; 82962; 83036; 83540; 83550; 83735; 83930; 83935; 84100; 84134; 84300; 84443; 85025; 85044; 92610; 93970; 97014; 97110; 97116; 97150; 97163; 97166; 97530; 97535; 97542; C1893; C9113; J1815; J2543; J2765; J3301; J3490; J7050; J7060; J8597; L0172

== ENCOUNTER → 2023-05-09 | Outpatient (CLI) | payer MEDICARE, MEDICAID ==
[~2023-05-09] MED LIST changes: +MELA3TAB40 PO; +METO25TA6 PO
== END | disposition home or self-care (01) ==
LOC: RAD 08:55
PROVIDERS: ATTEND Neurological Surgery
DX: M43.12 Spondylolisthesis, cervical region (principal); M47.812 Spondylosis without myelopathy or radiculopathy, cervical region; M48.02 Spinal stenosis, cervical region; M54.2 Cervicalgia
CPT/HCPCS: 72052

== ENCOUNTER → 2023-08-16 | Outpatient (CLI) | payer MEDICARE, MEDICAID | END | disposition home or self-care (01) | LOC: RAD 12:16 | PROVIDERS: ATTEND Specialist | DX: R22.41 Localized swelling, mass and lump, right lower limb (principal) | CPT/HCPCS: 73600 ==

== ENCOUNTER 2024-02-22 11:12 | Emergency (ER) | payer MEDICARE, MEDICAID ==
[~2024-02-22] VITALS: Ht 152.4 cm; Wt 77.0 kg
[2024-02-22] MEDS: MORPHINE SULFATE 2 MG/ML CPJ (NOT FOR IM USE) IV ONE (12:51)
[2024-02-22] MEDS: MIDAZOLAM HCL 2 MG/2 ML VIAL IV ONE (13:00)
[2024-02-22] MEDS: PROPOFOL 200MG/20ML VIAL IV ONE (15:19)
[2024-02-22 15:28] VITALS: O2SAT 100
[2024-02-22 17:31] VITALS: BP 129/66; PULSE 64; RESP 16; TEMP 98.8
== END 2024-02-22 17:38 | disposition home or self-care (01) ==
LOC: ER 11:12
DX: S73.005A Unspecified dislocation of left hip, initial encounter (principal); E11.9 Type 2 diabetes mellitus without complications; Z95.0 Presence of cardiac pacemaker; Z79.899 Other long term (current) drug therapy; W18.39XA Other fall on same level, initial encounter; Y93.89 Activity, other specified; Y92.89 Other specified places as the place of occurrence of the external cause; Y99.8 Other external cause status
CPT/HCPCS: 99285; 27250; 96374; 73502; 99152; 73501; J2250; J2704; J2270